=== PATIENT | male | born 1940 | race Caucasian/White ===

== ENCOUNTER → 2020-07-31 | Outpatient (CLI) | payer OTHER ==
[~2020-07-31] MED LIST: NORCO 5-325 TA1 EACH PO
== END ==
LOC: KOH-I 10:24
DX: M25.562 Pain in left knee (principal); M17.12 Unilateral primary osteoarthritis, left knee
CPT/HCPCS: 73562

== ENCOUNTER → 2020-08-31 | Outpatient (CLI) | payer OTHER | LOC: KOH-I 09:55 | DX: M79.671 Pain in right foot (principal) | CPT/HCPCS: 73630 ==